=== PATIENT | male | born 1945 | race Caucasian/White ===

== ENCOUNTER 2022-06-03 03:39 | Emergency (ER) | payer OTHER ==
[~2022-06-03] VITALS: Ht 185.4 cm; Wt 107.0 kg
[2022-06-03 04:00] VITALS: BP_SYST 132
--- NOTE | 2022-06-03 04:04 | NUR ---
PT BIB SPOUSE FR HOME C/O EPISTAXIS. PER PT, HE WAS JUST SLEEPING THEN AT 3AM HIS NOSE STARTED BLEEDING LARGE AMT OF BLOOD W/ BLOOD CLOTS AND WOKE HIM UP. PMH: PROSTATE CA NKDA.
--- NOTE | 2022-06-03 04:30 | NUR ---
FIRST CONTACT WITH PT. ASSESSMENT COMPLETED. AWAITING MD EVAL ORDERS.
[2022-06-03] MEDS ORDERED: PHENYLEPHRINE HCL 1% NASAL 15 ML NASPR NS ONE (05:00)
[2022-06-03] MEDS ORDERED: OXYMETAZOLINE HCL 0.05% NASAL SPRAY NS ONE (05:00)
--- NOTE | 2022-06-03 05:52 | NUR ---
Patient given written and verbal discharge instructions and verbalizes understanding. ER MD MATA discussed with patient the results and treatment provided. Patient in stable condition. ID arm band removed. NO Rx given. Patient educated on pain management and to follow up with PMD. Pain Scale 0. Opportunity for questions provided and answered. Medication side effect fact sheet provided.
[2022-06-03 05:57] VITALS: BP_SYST 134
== END 2022-06-03 05:52 | disposition home or self-care (01) ==
LOC: SED 03:39
DX: R04.0 Epistaxis (principal); Z79.899 Other long term (current) drug therapy
CPT/HCPCS: 99282